=== PATIENT | male | born 1990 ===

== ENCOUNTER 2016-11-03 14:39 | Emergency (ER) | payer SELFPAY ==
--- NOTE | 2016-11-04 09:17 | RAD ---
PROCEDURE: Right foot HISTORY: Pain. No history of recent/ related trauma provided COMPARISON: None TECHNIQUE: Standard protocol for this study/examination. FINDINGS: No significant/acute osseous, articular or soft tissue abnormalities. IMPRESSION: No acute findings related to/accounting for the clinical presentation.
== END 2016-11-03 19:05 | disposition home or self-care (01) ==
LOC: H.ER 14:39
DX: M79.671 Pain in right foot (principal)

== ENCOUNTER 2016-11-14 12:40 | Emergency (ER) | payer OTHER ==
[2016-11-14 12:48] VITALS: BP 118/84; PULSE 80; RESP 18; TEMP 97.4; O2SAT 100
[2016-11-14] MEDS ORDERED: Naproxen 500 MG TAB PO STA (13:05)
[2016-11-14] MEDS ORDERED: Naproxen 500 MG TAB PO ONE (13:07)
--- NOTE | 2016-11-14 13:09 | ED PDOC ---
Lower Extremity Pain/Injury Time Seen by Provider: 11/14/16 12:54 Chief Complaint (Nursing): Lower Extremity Problem/Injury Chief Complaint (Provider): Right foot pain History Per: Patient History/Exam Limitations: no limitations Onset/Duration Of Symptoms: Days (3 weeks) Current Symptoms Are (Timing): Still Present Severity: Moderate Additional History Per: Patient Additional Complaint(s): The pt is a 26yo male, presents tot he ED for evaluation of right foot pain, present for the past 3 weeks, worsening over this week. pt reports he has a "bump" on his medial plantar surface of his right foot, near his big toe. Due to this bump, pt reports he has been putting increased stress on the lateral aspect of his right foot, possibly causing his pain. Pt states he was in the ED 2 weeks ago for evaluation and was given Motrin and had an XR done with no acute findings. Pt denies any injuries or trauma to his foot. Currently offers no additional medical complaints. - Ankle/Foot Currently Unable To: Bear Weight Past Medical History Reviewed: Historical Data, Nursing Documentation, Vital Signs Vital Signs: Last Vital Signs Temp 97.4 F L 11/14/16 12:46 Pulse 80 11/14/16 12:46 Resp 18 11/14/16 12:46 BP 118/84 11/14/16 12:46 Pulse Ox 100 11/14/16 12:46 - Medical History PMH: No Chronic Diseases - Surgical History Surgical History: Appendectomy - Family History Family History: States: Unknown Family Hx - Home Medications Home Medications: Ambulatory Orders Medication Instructions Recorded Nabumetone [Relafen] 500 mg PO BID #20 tab 03/02/16 Ibuprofen [Motrin] 600 mg PO TID 7 Days 05/04/16 Naproxen 1 tab PO BID PRN #14 tab 11/14/16 - Allergies Allergies/Adverse Reactions: Allergies Allergy/AdvReac Type Severity Reaction Status Date / Time No Known Allergies Allergy Verified 07/03/15 18:48 Review of Systems ROS Statement: Except As Marked, All Systems Reviewed And Found Negative Musculoskeletal: Positive for: Foot Pain (right) Physical Exam - Reviewed Nursing Documentation Reviewed: Yes Vital Signs Reviewed: Yes - Physical Exam Appears: Positive for: Well, Non-toxic, No Acute Distress Head Exam: Positive for: ATRAUMATIC, NORMAL INSPECTION, NORMOCEPHALIC Skin: Positive for: Normal Color Cardiovascular/Chest: Positive for: Regular Rate, Rhythm Respiratory: Negative for: Respiratory Distress Pulses-Dorsalis Pedis (R): 2+ Extremity: Positive for: Tenderness (right lateral foot), Other (callous noted on medial plantar surface of right foot). Negative for: Normal ROM (decreased ROM due to pain) Neurologic/Psych: Positive for: Alert, Oriented - ECG O2 Sat by Pulse Oximetry: 100 (RA) Pulse Ox Interpretation: Normal - Progress ED Course And Treament: XRY OF FOOT: NEG FOR FX D/W PATIENT NEED TO F/U FOR CALLUS REMOVAL WITH PODIATRY CLINIC. Medical Decision Making Medical Decision Making: Time: 1310 Impression: Right foot pain Plan: * XR Right foot * Naproxen 500 mg PO * Reassess Scribe Attestation: All records were documented by Kiana Madden, acting as a Scribe for CESAR Rivera. Provider Scribe Attestation: All medical record entries made by the Scribe were at my direction and personally dictated by me. I have reviewed the chart and agree that the record accurately reflects my personal performance of the history, physical exam, medical decision making, and the department course for this patient. I have also personally directed, reviewed, and agree with the discharge instructions and disposition. Disposition - Clinical Impression Clinical Impression: Callus, Foot sprain - Patient ED Disposition Is Patient to be Admitted: No - Disposition Referrals: Podiatry Clinic [Outside] Disposition: Routine/Home Disposition Time: 14:04 Condition: FAIR Prescriptions: Naproxen 1 tab PO BID PRN #14 tab PRN Reason: Pain, Severe (8-10) Instructions: Foot Sprain (ED) Forms: [facility] ED School/Work Excuse Print Language: ROMANIAN
--- NOTE | 2016-11-14 13:56 | RAD ---
PROCEDURE: Right Foot Radiographs. HISTORY: foot pain COMPARISON: 11/03/2016 FINDINGS: BONES: No acute fracture or dislocation JOINTS: Normal. SOFT TISSUES: Normal. OTHER FINDINGS: None. IMPRESSION: No acute fracture-dislocation. If symptoms continue, cross-sectional imaging can be obtained.
== END 2016-11-14 14:50 | disposition home or self-care (01) ==
LOC: H.ER 12:40
DX: L84 Corns and callosities (principal); M79.671 Pain in right foot

== ENCOUNTER 2017-08-20 12:31 | Emergency (ER) | payer OTHER ==
[2017-08-20 13:09] VITALS: BP 131/88; PULSE 82; RESP 20; TEMP 98.2; O2SAT 98
--- NOTE | 2017-08-20 13:23 | ED PDOC ---
HPI: Back Time Seen by Provider: 08/20/17 12:50 Chief Complaint (Nursing): Flu-like Symptoms Chief Complaint (Provider): back pain History Per: Patient History/Exam Limitations: no limitations Onset/Duration Of Symptoms: Persistent (x2 weeks) Current Symptoms Are (Timing): Still Present Additional Complaint(s): 27 year old male presents to the emergency department with a complaint of upper and lower back pain exacerbated when he sneezes. Patient also reported having cough the last 3 days. Denied any fever, chills or prior episodes. PMD: none provided Past Medical History Reviewed: Historical Data, Nursing Documentation, Vital Signs Vital Signs: Last Vital Signs Temp 98.2 F 08/20/17 12:38 Pulse 82 08/20/17 12:38 Resp 20 08/20/17 12:38 BP 131/88 08/20/17 12:38 Pulse Ox 98 08/20/17 12:38 - Medical History PMH: No Chronic Diseases - Surgical History Surgical History: Appendectomy - Family History Family History: States: Unknown Family Hx - Living Arrangements Living Arrangements: With Family - Social History Current smoker - smoking cessation education provided: No Ex-Smoker (has not smoked in the last 12 months): No Alcohol: None Drugs: Cannabis - Home Medications Home Medications: Ambulatory Orders Medication Instructions Recorded Nabumetone [Relafen] 500 mg PO BID #20 tab 03/02/16 Ibuprofen [Motrin] 600 mg PO TID 7 Days tab 05/04/16 Naproxen 1 tab PO BID PRN #14 tab 11/14/16 Loratadine [Claritin] 10 mg PO DAILY #14 tab 08/20/17 - Allergies Allergies/Adverse Reactions: Allergies Allergy/AdvReac Type Severity Reaction Status Date / Time No Known Allergies Allergy Verified 07/03/15 18:48 Review of Systems ROS Statement: Except As Marked, All Systems Reviewed And Found Negative Constitutional: Negative for: Fever, Chills ENT: Positive for: Other (sneezing) Respiratory: Positive for: Cough Musculoskeletal: Positive for: Back Pain (upper/lower) Physical Exam - Reviewed Nursing Documentation Reviewed: Yes Vital Signs Reviewed: Yes - Physical Exam Appears: Positive for: Well, Non-toxic, No Acute Distress Head Exam: Positive for: ATRAUMATIC, NORMAL INSPECTION, NORMOCEPHALIC Skin: Positive for: Normal Color. Negative for: Pallor Eye Exam: Positive for: Normal appearance, EOMI, PERRL ENT: Positive for: Normal ENT Inspection Neck: Positive for: Normal Cardiovascular/Chest: Positive for: Regular Rate, Rhythm Respiratory: Positive for: Normal Breath Sounds Extremity: Positive for: Normal ROM Neurologic/Psych: Positive for: Alert (x3), Oriented - ECG O2 Sat by Pulse Oximetry: 98 (RA) Pulse Ox Interpretation: Normal Medical Decision Making Medical Decision Making: Initial Impression: Back pain Initial Plan: * Xray lumbar spine * Motrin 600mg PO * Xray thoracic spine Time: 1411 --Xray lumbar FINDINGS: BONES: No acute compression fractures no retropulsed fragments. Vertebral bodies exhibit normal stature. Vertebral bodies and facets normally aligned. In the. DISC SPACES: Mild narrowing disc space narrowing seen at the L5-S1. OTHER FINDINGS: None. IMPRESSION: Mild disc space narrowing L5-S1 level. Time: 1412 --Xray thoracic FINDINGS: BONES: Alignment maintained. No fracture. DISC SPACES: Normal. SOFT TISSUES: Normal. OTHER FINDINGS: None. IMPRESSION: Normal radiographs of the thoracic spine. Scribe Attestation: Documented by Katherine Thorpe, acting as a scribe for Lola Giraldo PA-C. Provider Scribe Attestation: All medical record entries made by the Scribe were at my direction and personally dictated by me. I have reviewed the chart and agree that the record accurately reflects my personal performance of the history, physical exam, medical decision making, and the department course for this patient. I have also personally directed, reviewed, and agree with the discharge instructions and disposition. Disposition - Clinical Impression Clinical Impression: Back pain, Environmental allergies - Patient ED Disposition Is Patient to be Admitted: No - Disposition Referrals: FAMILY PROVIDER,NO [Primary Care Provider] - Disposition: Routine/Home Disposition Time: 14:50 Condition: GOOD Prescriptions: Loratadine [Claritin] 10 mg PO DAILY #14 tab Instructions: Low Back Pain in Adults Forms: [facility] (Lao)
--- NOTE | 2017-08-20 14:13 | RAD ---
PROCEDURE: Radiographs of the Lumbar Spine. HISTORY: pain when sneezing COMPARISON: Comparison made with plain film radiographs lumbar spine 03/02/2016 FINDINGS: BONES: No acute compression fractures no retropulsed fragments. Vertebral bodies exhibit normal stature. Vertebral bodies and facets normally aligned. In the. DISC SPACES: Mild narrowing disc space narrowing seen at the L5-S1. OTHER FINDINGS: None. IMPRESSION: Mild disc space narrowing L5-S1 level. .
--- NOTE | 2017-08-20 14:14 | RAD ---
HISTORY: Pain when sneezing COMPARISON: No prior. FINDINGS: BONES: Alignment maintained. No fracture. DISC SPACES: Normal. SOFT TISSUES: Normal. OTHER FINDINGS: None. IMPRESSION: Normal radiographs of the thoracic spine.
== END 2017-08-20 15:06 | disposition home or self-care (01) ==
LOC: H.ER 12:31 → SUPCPDRO 12:31 → H.ER 15:06
DX: M54.9 Dorsalgia, unspecified (principal); J30.2 Other seasonal allergic rhinitis

== ENCOUNTER 2018-05-26 15:12 | Emergency (ER) | payer SELFPAY ==
[2018-05-26 15:20] VITALS: TEMP 98
--- NOTE | 2018-05-26 16:14 | ED PDOC ---
History of Present Illness History of Present Illness: Tyler Price is a 27 year old male with no past medical history who is presenting to the ED for evaluation of ear pain, nasal congestion, and throat pain associated with productive cough and green sputum onset 3 days ago. Patient states that he felt intermittently feverish but has not taken his temperature. He reports that he has been using Dayquil and Nyquil with minimal relief in symptoms. Patient offers no other medical complaints at this time. PMD: none provided HPI: Influenza Time Seen by Provider: 05/26/18 15:31 Chief Complaint: Cough, Cold, Congestion Chief Complaint (Provider): Cough, Cold, Congestion History Per: Patient Exam Limitations: no limitations Onset/Duration Of Symptoms: Days (x3) Symptoms include: fever, sore throat, cough, nasal congestion Past Medical History Reviewed: Historical Data, Nursing Documentation, Vital Signs Vital Signs: Last Vital Signs Temp 98 F 05/26/18 15:18 Pulse 81 05/26/18 15:18 Resp 16 05/26/18 15:18 BP 147/96 H 05/26/18 15:18 Pulse Ox 99 05/26/18 15:18 - Medical History PMH: No Chronic Diseases - Surgical History Surgical History: Appendectomy - Family History Family History: States: Unknown Family Hx - Social History Current smoker - smoking cessation education provided: No Alcohol: None - Home Medications Home Medications: Ambulatory Orders Medication Instructions Recorded Nabumetone [Relafen] 500 mg PO BID #20 tab 03/02/16 Ibuprofen [Motrin] 600 mg PO TID 7 Days tab 05/04/16 Naproxen 1 tab PO BID PRN #14 tab 11/14/16 Loratadine [Claritin] 10 mg PO DAILY #14 tab 08/20/17 Azithromycin [Zithromax] 250 mg PO DAILY #6 tab 05/26/18 - Allergies Allergies/Adverse Reactions: Allergies Allergy/AdvReac Type Severity Reaction Status Date / Time No Known Allergies Allergy Verified 07/03/15 18:48 Review of Systems ROS Statement: Except As Marked, All Systems Reviewed And Found Negative Constitutional: Positive for: Fever ENT: Positive for: Nose Congestion, Throat Pain Respiratory: Positive for: Cough, Sputum Physical Exam - Reviewed Nursing Documentation Reviewed: Yes Vital Signs Reviewed: Yes - Physical Exam Appears: Positive for: Well, Non-toxic, No Acute Distress Head Exam: Positive for: ATRAUMATIC, NORMAL INSPECTION, NORMOCEPHALIC Skin: Positive for: Normal Color, Warm, DRY Eye Exam: Positive for: EOMI, Normal appearance, PERRL ENT: Positive for: Pharynx Is (clear), TM Is/Are (normal ), Pharyngeal Erythema Cardiovascular/Chest: Positive for: Regular Rate, Rhythm. Negative for: Murmur Respiratory: Positive for: Normal Breath Sounds. Negative for: Respiratory Distress Neurologic/Psych: Positive for: Alert, Oriented. Negative for: Motor/Sensory Deficits Medical Decision Making Medical Decision Making: Scribe Attestation: Documented by Tamy Oquendo, acting as a scribe for Lola Giraldo PA-C. Provider Scribe Attestation: All medical record entries made by the Scribe were at my direction and personally dictated by me. I have reviewed the chart and agree that the record accurately reflects my personal performance of the history, physical exam, medical decision making, and the department course for this patient. I have also personally directed, reviewed, and agree with the discharge instructions and disposition. - ECG O2 Sat by Pulse Oximetry: 99 Disposition - Clinical Impression Clinical Impression: Cough - Patient ED Disposition Is Patient to be Admitted: No Counseled Patient/Family Regarding: Diagnosis, Need For Followup, Rx Given - Disposition Referrals: [facility] [Outside] Disposition: Routine/Home Disposition Time: 16:39 Condition: GOOD Prescriptions: Azithromycin [Zithromax] 250 mg PO DAILY #6 tab Instructions: Cough in Adults Forms: [employer] (Italian)
[2018-05-26 16:43] VITALS: BP 130/76; PULSE 78; RESP 18; O2SAT 98
== END 2018-05-26 16:43 | disposition home or self-care (01) ==
LOC: H.ER 15:12
DX: R05 Cough (principal)

== ENCOUNTER 2018-08-26 20:02 | Emergency (ER) | payer SELFPAY ==
[2018-08-26] MEDS ORDERED: Promethazine 12.5 mg/10 ml Syrup PO STA (20:27)
[2018-08-26] MEDS ORDERED: Promethazine 6.25 MG/5 ML CUP ONE (20:33)
--- NOTE | 2018-08-26 20:39 | ED PDOC ---
History of Present Illness History of Present Illness: No PMHx presenting with cough, fever, chills, and chest pain. States the cough began 10 days ago, states he had a flu test which was negative and then came to the ER because of vomiting, was diagnosed with gastroenteritis and sent home with medication but states he is still feeling unwell. States his fever started around 2 days ago and today had a fever of TMax of 102. States he took 2 tylenols 2 hours prior to arrival. Denies recent travel or sick contacts. HPI: Influenza Time Seen by Provider: 08/26/18 20:14 Chief Complaint: Cough, Cold, Congestion History Per: Gamer (Voyce: [id number], Canadian (patient then decided to speak [place]er after using interperter to states his history of present illness)) Past Medical History Reviewed: Historical Data, Nursing Documentation, Vital Signs Vital Signs: Last Vital Signs Temp 99.1 F 08/26/18 20:09 Pulse 112 H 08/26/18 20:09 Resp 18 08/26/18 20:09 BP 130/99 H 08/26/18 20:09 Pulse Ox 97 08/26/18 20:09 - Medical History PMH: No Chronic Diseases - Surgical History Surgical History: Appendectomy - Family History Family History: States: Unknown Family Hx - Immunization History Hx Tetanus Toxoid Vaccination: No Hx Influenza Vaccination: No Hx Pneumococcal Vaccination: No - Home Medications Home Medications: Ambulatory Orders Medication Instructions Recorded Nabumetone [Relafen] 500 mg PO BID #20 tab 03/02/16 Ibuprofen [Motrin] 600 mg PO TID 7 Days tab 05/04/16 Naproxen 1 tab PO BID PRN #14 tab 11/14/16 Loratadine [Claritin] 10 mg PO DAILY #14 tab 08/20/17 Azithromycin [Zithromax] 250 mg PO DAILY #6 tab 05/26/18 Sucralfate [Carafate] 1 gm PO QID #30 dose 08/17/18 Azithromycin [Z-Sea] 250 mg PO DAILY #6 tab 08/26/18 - Allergies Allergies/Adverse Reactions: Allergies Allergy/AdvReac Type Severity Reaction Status Date / Time No Known Allergies Allergy Verified 08/26/18 20:12 Review of Systems ROS Statement: Except As Marked, All Systems Reviewed And Found Negative Constitutional: Positive for: Fever, Chills Cardiovascular: Positive for: Chest Pain Respiratory: Positive for: Cough Physical Exam - Reviewed Nursing Documentation Reviewed: Yes Vital Signs Reviewed: Yes - Physical Exam Appears: Positive for: Well, Non-toxic, No Acute Distress Head Exam: Positive for: ATRAUMATIC, NORMAL INSPECTION, NORMOCEPHALIC Skin: Positive for: Normal Color, Warm, DRY Eye Exam: Positive for: EOMI, Normal appearance, PERRL ENT: Positive for: Normal ENT Inspection Neck: Positive for: Normal, Painless ROM Cardiovascular/Chest: Positive for: Tachycardia Respiratory: Positive for: CNT, Normal Breath Sounds Gastrointestinal/Abdominal: Positive for: Normal Exam, Soft Back: Positive for: Normal Inspection Extremity: Positive for: Normal ROM Neurological/Psych: Positive for: Awake, Alert, Normal Tone Medical Decision Making Medical Decision Makin28 year old M presenting with cough, fever, chills --Symptoms possibly related to pneumonia, flu, URI --Out of treatment window for influenza with tamiflu --Will get CXR to rule out PNA --Will give NSAID and PO fluids --Will continue to monitor 1030PM --Well appearing, vitals improved --Will treat for clinical PNA --Advised patient to followup with his PMD/clinic - ECG O2 Sat by Pulse Oximetry: 97 Disposition - Clinical Impression Clinical Impression: Cough - Patient ED Disposition Is Patient to be Admitted: No - Disposition Referrals: [facility] [Outside] Disposition: Routine/Home Disposition Time: 22:50 Condition: IMPROVED Prescriptions: Azithromycin [Z-Sea] 250 mg PO DAILY #6 tab Instructions: Acute Bronchitis, Adult (DC) Forms: [employer] (Hong Konger) Print Language: MACANESE
[2018-08-26 23:11] VITALS: BP 118/66; PULSE 71; RESP 18; TEMP 98.2; O2SAT 100
--- NOTE | 2018-08-27 08:17 | RAD ---
Date of service: 08/26/2018 HISTORY: cough, fever, chills COMPARISON: Chest radiographs 01/23/2015. TECHNIQUE: Chest PA and lateral FINDINGS: LUNGS: No active pulmonary disease. PLEURA: No significant pleural effusion identified. No pneumothorax apparent. CARDIOVASCULAR: No aortic atherosclerotic calcification present. Normal cardiac size. No pulmonary vascular congestion. OSSEOUS STRUCTURES: No significant abnormalities. VISUALIZED UPPER ABDOMEN: Normal. OTHER FINDINGS: None. IMPRESSION: No interval acute cardiopulmonary disease appreciated.
== END 2018-08-26 22:51 | disposition home or self-care (01) ==
LOC: H.ER 20:02
DX: R05 Cough (principal); R00.0 Tachycardia, unspecified